=== PATIENT | male | born 1940 | race African-American/Black ===

== ENCOUNTER → 2016-08-10 | Outpatient (CLI) | payer MEDICARE | LOC: RAD 10:42 | PROVIDERS: ATTEND Internal Medicine | DX: N18.9 Chronic kidney disease, unspecified (principal) | CPT/HCPCS: 76770 ==

== ENCOUNTER → 2016-10-26 | Outpatient (CLI) | payer MEDICARE ==
--- NOTE | 2016-10-26 12:29 | RADIOLOGY REPORT (SQ) ---
EXAM DESCRIPTION: U/S RETROPERITON (RENAL/AORTA) COMPLETED DATE/TIME: 10/26/2016 10:57 am REASON FOR STUDY: CHRONIC KIDNEY DISEASE N18.3 CHRONIC KIDNEY DISEASE, STAGE 3 (MODERATE) COMPARISON: 08/10/2016 TECHNIQUE: Dynamic and static grayscale images acquired of the kidneys and bladder and recorded on P ACS. Additional selected color Doppler and spectral images recorded. LIMITATIONS: None. FINDINGS: RIGHT KIDNEY: 10 cm in length, with mild increased cortical echogenicity and cortical thin sukh, similar compared to 08/10/2016. No solid or suspicious masses. No hydronephrosis. No calcificat ions. LEFT KIDNEY: 9.7 cm in length, with mild increased cortical echogenicity and cortical thinning, josey lar compared to 08/10/2016. No solid or suspicious masses. No hydronephrosis. No calcifications. BLADDER: Decompressed, not well seen OTHER FINDINGS: No other significant finding. IMPRESSION: No hydronephrosis. Stable small kidneys with mild increased cortical echogenicity and cortical thinning. TECHNICAL DOCUMENTATION: JOB ID: [id number] [employer]- All Rights Reserved
== END ==
LOC: RAD 10:11
PROVIDERS: ATTEND Internal Medicine
DX: N18.3 Chronic kidney disease, stage 3 (moderate) (principal)
CPT/HCPCS: 76770

== ENCOUNTER 2018-09-17 18:09 | Emergency (ER) | payer MEDICARE ==
[2018-09-17] MEDS ORDERED: IBUPROFEN 800 MG TABLET PO ONE (18:27)
--- NOTE | 2018-09-17 19:20 | ER Document Report ---
ED Medical Screen (RME) - General Chief Complaint: Eye Problem Stated Complaint: RIGHT EYE PAIN Time Seen by Provider: 09/17/18 19:11 Primary Care Provider: AMBER MUSE MD [Primary Care Provider] - Follow up as needed Mode of Arrival: Ambulatory Information source: Patient Notes: 78-year-old male presents the ED for complaint of right eye pain swelling fever. He states he crashed blue into his eye about a week ago and it did not really feel bad felt like maybe sent was in his eye and he left it and that it is slowly become more swollen and painful. He states now it is draining a lot of green thick drainage it is swollen around the eye for the last couple days. He states now the vision is very blurry in the right eye. He came to the emergency room with a temperature of 102. Has a history of high blood pressure cholesterol and asthma. Patient states he has some pain in that eye but is not excruciating. I have greeted and performed a rapid initial assessment of this patient. A comprehensive ED assessment and evaluation of the patient, analysis of test results and completion of medical decision making process will be conducted by an additional ED providers. Dictation of this chart was performed using voice recognition software; therefore, there may be some unintended grammatical errors. TRAVEL OUTSIDE OF THE [place] IN LAST 30 DAYS: No - Related Data Allergies/Adverse Reactions: No Known Allergies Allergy (Verified 09/17/18 18:14) Past Medical History - Social History Chew tobacco use (# tins/day): No Frequency of alcohol use: None Drug Abuse: None - Past Medical History Cardiac Medical History: Reports: Hx Hypercholesterolemia, Hx Hypertension Renal/ Medical History: Denies: Hx Peritoneal Dialysis Psychiatric Medical History: Reports: Hx Schizophrenia Physical Exam - Vital signs Vitals: Temp Pulse Resp BP Pulse Ox 102.1 F H 86 18 164/71 H 96 09/17/18 18:25 09/17/18 18:25 09/17/18 18:25 09/17/18 18:25 09/17/18 18:25 Course - Vital Signs Vital signs: Temp Pulse Resp BP Pulse Ox 102.1 F H 86 18 164/71 H 96 09/17/18 18:25 09/17/18 18:25 09/17/18 18:25 09/17/18 18:25 09/17/18 18:25 Doctor's Discharge - Discharge Referrals: AMBER MUSE MD [Primary Care Provider] - Follow up as needed
[2018-09-17 20:04] LABS: ABSOLUTE BASOPHILS # (AUTO) 0.1 10^3/uL (0.0-0.2); ABSOLUTE EOSINOPHILS # (AUTO) 0.1 10^3/uL (0.0-0.6); ABSOLUTE LYMPHOCYTES (AUTO) 1.1 10^3/uL (0.5-4.7); ABSOLUTE MONOCYTES (AUTO) 1.1 10^3/uL (0.1-1.4); ABSOLUTE NEUT (AUTO) 8.2 10^3/uL (1.7-8.2); BASOPHILS % (AUTO) 0.6 % (0-2); EOSINOPHILS % (AUTO) 1.1 % (0-6); HEMATOCRIT 42.5 % (37.9-51.0); HEMOGLOBIN 14.1 g/dL (13.5-17.0); LYMPHOCYTES % (AUTO) 10.8 % (13-45); MEAN CORPUSCULAR HEMOGLOBIN 28.6 pg (27.0-33.4); MEAN CORPUSCULAR HGB CONC 33.2 g/dL (32.0-36.0); MEAN CORPUSCULAR VOLUME 86 fl (80-97); MONOCYTES % (AUTO) 10.4 % (3-13); PLATELET COUNT 222 10^3/uL (150-450); RED BLOOD COUNT 4.93 10^6/uL (4.35-5.55); RED CELL DISTRIBUTION WIDTH 14.4 % (11.5-14.0); SEGMENTED NEUTROPHILS % (AUTO) 77.1 % (42-78); TOTAL CELLS COUNTED % (AUTO) 100 %; WHITE BLOOD COUNT 10.6 10^3/uL (4.0-10.5)
[2018-09-17 20:10] LABS: APPEARANCE,URINE SLIGHTLY-CLOUDY; BILIRUBIN,URINE NEGATIVE (NEGATIVE); COLOR,URINE YELLOW; GLUCOSE, URINE NEGATIVE (NEGATIVE); KETONES,URINE NEGATIVE (NEGATIVE); LEUKOCYTE ESTERASE,URINE NEGATIVE (NEGATIVE); NITRITE,URINE NEGATIVE (NEGATIVE); PROTEIN,URINE 30 mg/dL (NEGATIVE); URINE SPECIFIC GRAVITY 1.014; UROBILINOGEN,URINE NEGATIVE mg/dL (<2.0)
[2018-09-17 20:20] LABS: ALANINE AMINOTRANSFERASE 25 U/L (21-72); ALBUMIN 4.3 g/dL (3.5-5.0); ALKALINE PHOSPHATASE 64 U/L (38-126); ANION GAP 13 (5-19); ASPARTATE AMINO TRANSFERASE 23 U/L (17-59); BILIRUBIN,DIRECT 0.2 mg/dL (0.0-0.4); BILIRUBIN,TOTAL 0.4 mg/dL (0.2-1.3); BLOOD UREA NITROGEN 19 mg/dL (7-20); C-REACTIVE PROTEIN 33.1 mg/L (<10.0); CALCIUM 9.7 mg/dL (8.4-10.2); CARBON DIOXIDE 27 mmol/L (22-30); CHLORIDE 98 mmol/L (98-107); GLUCOSE 219 mg/dL (75-110); POTASSIUM 4.3 mmol/L (3.6-5.0); SODIUM 137.6 mmol/L (137-145); TOTAL PROTEIN 8.1 g/dL (6.3-8.2)
[2018-09-17 20:42] LABS: ERYTHROCYTE SEDIMENTATION RATE 41 mm/hr (0-20)
[2018-09-17] MEDS ORDERED: VALACYCLOVIR HCL 500 MG TABLET PO ONE (21:29)
[2018-09-17 22:06] VITALS: BP 135/71
--- NOTE | 2018-09-17 22:31 | ER Document Report ---
ED Eye Complaint - General Chief Complaint: Eye Problem Stated Complaint: RIGHT EYE PAIN Time Seen by Provider: 09/17/18 19:11 Primary Care Provider: DYLON HORN MD [ACTIVE STAFF] - Follow up as needed Mode of Arrival: Ambulatory Information source: Patient Notes: Patient is a 78-year-old male who presents to the ER today for eye complaints, redness, drainage of yellow discharge from eye times approximately 1 week, also rash to the forehead that he noticed a few days ago as well. Patient is unsure if he got anything in the eye, denies any injury to the eye. He does not wear contacts but he does wear reading glasses. He states he has had a headache but denies any fever that he knows of. He denies any cough or cold symptoms. TRAVEL OUTSIDE OF THE [place] IN LAST 30 DAYS: No - Related Data Allergies/Adverse Reactions: No Known Allergies Allergy (Verified 09/17/18 18:14) Past Medical History - General Information source: Patient - Social History Smoking Status: Never Smoker Chew tobacco use (# tins/day): No Frequency of alcohol use: None Drug Abuse: None Family History: Reviewed & Not Pertinent Patient has suicidal ideation: No Patient has homicidal ideation: No - Past Medical History Cardiac Medical History: Reports: Hx Hypercholesterolemia, Hx Hypertension Renal/ Medical History: Denies: Hx Peritoneal Dialysis Psychiatric Medical History: Reports: Hx Schizophrenia Review of Systems - Review of Systems Constitutional: No symptoms reported EENT: See HPI Cardiovascular: No symptoms reported Respiratory: No symptoms reported Gastrointestinal: No symptoms reported Genitourinary: No symptoms reported Male Genitourinary: No symptoms reported Musculoskeletal: No symptoms reported Skin: See HPI Hematologic/Lymphatic: No symptoms reported Neurological/Psychological: No symptoms reported Physical Exam - Vital signs Vitals: Temp Pulse Resp BP Pulse Ox 102.1 F H 86 18 164/71 H 96 09/17/18 18:25 09/17/18 18:25 09/17/18 18:25 09/17/18 18:25 09/17/18 18:25 - Notes Notes: PHYSICAL EXAMINATION: GENERAL: Well-appearing and in no acute distress. HEAD: Atraumatic, normocephalic. EYES: Pupils equal round and reactive to light, extraocular movements intact, sclera anicteric, conjunctiva injected to the right eye only, erythema to the right upper eyelid and inferior orbital space, some clear fluid-filled blisters to area surrounding right eye and to right forehead and right scalp, not crossing the midline ENT: ear canals without erythema or foreign body, TMs pearly hair with good bony landmarks, nares patent, oropharynx clear without exudates. Moist mucous membranes. NECK: Normal range of motion, supple without lymphadenopathy LUNGS: CTAB and equal. No wheezes rales or rhonchi. HEART: Regular rate and rhythm without murmurs EXTREMITIES: Normal range of motion, no pitting edema. No cyanosis. NEUROLOGICAL: Cranial nerves grossly intact. Normal sensory/motor exams. PSYCH: Normal mood, normal affect. SKIN: Warm, Dry, normal turgor, see eyes above - HEENT Visual acuity- Right eye: 20/50 Visual acuity- Left eye: 20/40 Visual acuity- Both eyes: 20/30 Corrective lenses worn: - Reading glasses Course - Re-evaluation Re-evalutation: 09/17/18 23:14 Patient is actually very well-appearing, happy, talkative and even laughing during history and physical exam, he does appear clinically to have shingles with ocular involvement. Patient's visual acuity however was not bad, he denies any actual pain to the eyeball or photosensitivity, had normal extraocular movements without pain, Dr. Horn, fruit receiver on-call was consulted and wants me to start him on erythromycin ointment and Valtrex, he will see him in the morning in the office. - Vital Signs Vital signs: Temp Pulse Resp BP Pulse Ox 98.6 F 64 20 135/71 H 97 09/17/18 22:04 09/17/18 22:04 09/17/18 22:04 09/17/18 22:04 09/17/18 22:04 - Laboratory Result Diagrams: 09/17/18 19:40 09/17/18 19:40 Laboratory results interpreted by me: 09/17/18 09/17/18 09/17/18 19:40 19:40 19:40 WBC 10.6 H RDW 14.4 H Lymphocytes % 10.8 L ESR 41 H Creatinine 1.81 H Est GFR ( Amer) 44 L Est GFR (Non-Af Amer) 37 L Glucose 219 H C-Reactive Protein 33.1 H Urine Protein 30 H Urine Blood MODERATE H Discharge - Discharge Clinical Impression: Shingles outbreak Qualifiers: Herpes zoster complications: with ocular involvement Herpes zoster ocular complication detail: conjunctivitis Qualified Code(s): B02.31 - Zoster conjunctivitis Condition: Stable Disposition: HOME, SELF-CARE Additional Instructions: Return immediately for any new or worsening symptoms. Follow up with ophthalmology, call tomorrow to make followup appointment. Prescriptions: Erythromycin Base [Erythromycin Oph 1 gm Oint Ud] 1 applic OD BID #1 tube Valacyclovir HCl [Valtrex] 1,000 mg PO TID #21 tablet Referrals: DYLON HORN MD [ACTIVE STAFF] - Follow up as needed
[2018-09-17] MEDS ORDERED: ERYTHROMYCIN 0.5% OPH OINT 1 GM UNIT DOSE OD ONE (22:37)
== END 2018-09-17 22:55 | disposition home or self-care (01) ==
LOC: ER 18:09
DX: B02.31 Zoster conjunctivitis (principal); R51 Headache; I10 Essential (primary) hypertension
CPT/HCPCS: 99283; 36415; 85025; 85652; 86140; 80053; 81001; 76770; A9270 ×2

== ENCOUNTER → 2018-09-17 | Outpatient (CLI) | payer MEDICARE ==
--- NOTE | 2018-09-17 13:07 | RADIOLOGY REPORT (SQ) ---
EXAM DESCRIPTION: U/S RETROPERITON (RENAL/AORTA) COMPLETED DATE/TIME: 09/17/2018 12:07 pm REASON FOR STUDY: CKD III (N18.3) N18.3 CHRONIC KIDNEY DISEASE, STAGE 3 (MODERATE) COMPARISON: 10/26/2016. TECHNIQUE: Dynamic and static grayscale images acquired of the kidneys and bladder and recorded on P ACS. Additional selected color Doppler and spectral images recorded. LIMITATIONS: None. FINDINGS: RIGHT KIDNEY: Normal size. Normal echogenicity. No solid or suspicious masses. No hydronep hrosis. No calcifications. LEFT KIDNEY: Normal size. Normal echogenicity. No solid or suspicious masses. No hydronephrosis. No calcifications. BLADDER: No masses. OTHER FINDINGS: No other significant finding. IMPRESSION: NORMAL RENAL AND BLADDER ULTRASOUND. TECHNICAL DOCUMENTATION: JOB ID: [id number] [employer]- All Rights Reserved Reading location - IP/workstation name: [email or web address]
== END ==
LOC: RAD 10:43
PROVIDERS: ATTEND Internal Medicine
DX: N18.3 Chronic kidney disease, stage 3 (moderate) (principal)
CPT/HCPCS: 76770

== ENCOUNTER 2020-01-23 02:27 | Emergency (ER) | payer OTHER, MEDICARE ==
--- NOTE | 2020-01-23 03:01 | ER Document Report ---
ED Psych Disorder / Suicide - General Chief Complaint: Psych Problem Stated Complaint: PSYCH ISSUES Time Seen by Provider: 01/23/20 02:53 Primary Care Provider: AMBER MUSE MD [Primary Care Provider] - Follow up as needed Notes: Patient is a 79-year-old male with a history of schizoaffective disorder who presents the emergency department with a chief complaint of not sleeping and not acting his normal self. Patient was seen here in the emergency department last week and was evaluated by mental health. According to the , the patient is taking his medications, but he is still not acting his normal self. states that he has been acting his normal self for the past 2 days. Patient has had an old diaper and he has been wrapping around his left wrist and hand. Patient denies any suicidal or homicidal ideation. TRAVEL OUTSIDE OF THE [place] IN LAST 30 DAYS: No - Related Data Allergies/Adverse Reactions: No Known Allergies Allergy (Verified 01/23/20 02:45) Past Medical History - General Information source: Relative - Social History Smoking Status: Never Smoker Frequency of alcohol use: None Drug Abuse: None Family History: Reviewed & Not Pertinent Patient has homicidal ideation: No - Past Medical History Cardiac Medical History: Reports: Hx Hypercholesterolemia, Hx Hypertension Renal/ Medical History: Denies: Hx Peritoneal Dialysis Psychiatric Medical History: Reports: Hx Schizophrenia Review of Systems - Review of Systems -: Yes ROS unobtainable due to patient's medical condition Physical Exam - Vital signs Vitals: Pulse Resp BP Pulse Ox 101 H 18 175/98 H 97 01/23/20 02:35 01/23/20 02:35 01/23/20 02:35 01/23/20 02:35 - Notes Notes: PHYSICAL EXAMINATION: GENERAL: Appears disheveled, no acute distress. HEAD: Normocephalic, atraumatic. EYES: PERRL, conjunctiva normal, all extraocular movements intact, sclera nonicteric ENT: Moist mucous membranes. NECK: Supple, no noticeable swelling, redness, rash. Normal range of motion. LUNGS: Equal breath sounds bilaterally and clear to auscultation. No wheezes rales or rhonchi. CARDIOVASCULAR: S1-S2, regular rate, regular rhythm. Radial pulses 2+, normal. ABDOMEN: Normoactive bowel sounds. Soft, nontender, no guarding, no rebound tenderness, and no masses palpated. EXTREMITIES: Normal strength and range of motion, no pitting or edema. No cyanosis. NEUROLOGICAL: Moves all extremities upon command. Strength 5/5 in all extremities. PSYCH: Normal mood, normal affect. SKIN: Warm, dry. No rash, lesions, ulcerations noted. Normal skin turgor. Course - Re-evaluation Re-evalutation: 01/23/20 06:50 Hematology shows a slight leukocytosis of 10,900 with a left shift. Chemistries show a creatinine of 1.43, which is the patient's baseline. Urinalysis shows moderate amount of blood, which patient had a moderate amount of blood in his urine from his previous visit. His urine was sent for culture at that time. Nothing grew back anything. Valproic acid level is therapeutic. Salicylates, acetaminophen, and serum alcohol are negative. Urine drug screen is also negative. Chest x-ray is unremarkable. CT of the head does not show any intra- medial findings. Patient is medically clear for mental health evaluation by Dr. Pepe and staff. - Vital Signs Vital signs: Temp Pulse Resp BP Pulse Ox 101 H 18 175/98 H 97 01/23/20 02:35 01/23/20 02:35 01/23/20 02:35 01/23/20 02:35 - Laboratory Result Diagrams: 01/23/20 04:02 01/23/20 04:02 Laboratory results interpreted by me: 01/23/20 01/23/20 01/23/20 02:53 04:02 04:02 WBC 10.8 H Hgb 13.2 L RDW 14.1 H Lymph % (Auto) 10.2 L Absolute Neuts (auto) 8.7 H Seg Neutrophils % 80.4 H Creatinine 1.43 H Est GFR ( Amer) 58 L Est GFR (MDRD) Non-Af 48 L Glucose 118 H AST 94 H ALT 55 H Urine Protein 100 H Urine Ketones TRACE H Urine Blood MODERATE H Salicylates < 1.0 L Acetaminophen < 10 L Discharge - Discharge Clinical Impression: Behavior disturbance Condition: Stable Disposition: PSYCH HOSP/UNIT Referrals: AMBER MUSE MD [Primary Care Provider] - Follow up as needed
[2020-01-23 03:35] LABS: APPEARANCE,URINE CLEAR; BILIRUBIN,URINE NEGATIVE (NEGATIVE); COLOR,URINE STRAW; GLUCOSE, URINE NEGATIVE (NEGATIVE); KETONES,URINE TRACE mg/dL (NEGATIVE); LEUKOCYTE ESTERASE,URINE NEGATIVE (NEGATIVE); NITRITE,URINE NEGATIVE (NEGATIVE); PROTEIN,URINE 100 mg/dL (NEGATIVE); URINE SPECIFIC GRAVITY 1.008; UROBILINOGEN,URINE NEGATIVE mg/dL (<2.0)
[2020-01-23 03:44] LABS: URINE AMPHETAMINES SCREEN NEGATIVE; URINE BARBITURATES SCREEN NEGATIVE; URINE BENZODIAZEPINES SCREEN NEGATIVE; URINE COCAINE SCREEN NEGATIVE; URINE MARIJUANA (THC) SCREEN NEGATIVE; URINE METHADONE SCREEN NEGATIVE; URINE PHENCYCLIDINE SCREEN NEGATIVE
[2020-01-23 04:29] LABS: ABSOLUTE BASOPHILS # (AUTO) 0.1 10^3/uL (0.0-0.2); ABSOLUTE EOSINOPHILS # (AUTO) 0.1 10^3/uL (0.0-0.6); ABSOLUTE LYMPHOCYTES (AUTO) 1.1 10^3/uL (0.5-4.7); ABSOLUTE MONOCYTES (AUTO) 0.8 10^3/uL (0.1-1.4); ABSOLUTE NEUT (AUTO) 8.7 10^3/uL (1.7-8.2); BASOPHILS % (AUTO) 0.8 % (0-2); EOSINOPHILS % (AUTO) 0.9 % (0-6); HEMATOCRIT 39.2 % (37.9-51.0); HEMOGLOBIN 13.2 g/dL (13.5-17.0); LYMPHOCYTES % (AUTO) 10.2 % (13-45); MEAN CORPUSCULAR HEMOGLOBIN 29.2 pg (27.0-33.4); MEAN CORPUSCULAR HGB CONC 33.7 g/dL (32.0-36.0); MEAN CORPUSCULAR VOLUME 87 fl (80-97); MONOCYTES % (AUTO) 7.7 % (3-13); PLATELET COUNT 180 10^3/uL (150-450); RED BLOOD COUNT 4.51 10^6/uL (4.35-5.55); RED CELL DISTRIBUTION WIDTH 14.1 % (11.5-14.0); SEGMENTED NEUTROPHILS % (AUTO) 80.4 % (42-78); TOTAL CELLS COUNTED % (AUTO) 100 %; WHITE BLOOD COUNT 10.8 10^3/uL (4.0-10.5)
[2020-01-23 04:46] LABS: ALBUMIN 4.7 g/dL (3.5-5.0); ALKALINE PHOSPHATASE 61 U/L (38-126); ANION GAP 12 (5-19); ASPARTATE AMINO TRANSFERASE 94 U/L (17-59); BILIRUBIN,DIRECT 0.4 mg/dL (0.0-0.4); BILIRUBIN,TOTAL 0.9 mg/dL (0.2-1.3); BLOOD UREA NITROGEN 20 mg/dL (7-20); CALCIUM 9.5 mg/dL (8.4-10.2); CARBON DIOXIDE 24 mmol/L (22-30); CHLORIDE 105 mmol/L (98-107); GLUCOSE 118 mg/dL (75-110); POTASSIUM 3.6 mmol/L (3.6-5.0); TOTAL PROTEIN 8.2 g/dL (6.3-8.2)
[2020-01-23 04:47] LABS: ACETAMINOPHEN < 10 ug/mL (10-30); ALCOHOL < 10 mg/dL (NONE DETECTED); SALICYLATE < 1.0 mg/dL (2.0-20.0)
--- NOTE | 2020-01-23 05:30 | RADIOLOGY REPORT (SQ) ---
EXAM DESCRIPTION: CT HEAD WITHOUT IV CONTRAST COMPLETED DATE/TME: 01/23/2020 03:01 CLINICAL HISTORY: AMS COMPARISON: 01/15/2020 TECHNIQUE: Axial CT of the head obtained from the skull apex to the skull base without contrast. FINDINGS: No acute intracranial hemorrhage identified. No mass, mass effect, shift of the midline, abnormal extra-axial fluid collection or CT evidence of acute ischemic change identified. The ventricular system and sulcal spaces are age appropriate. Scattered areas of hypodensity throughout the supratentorial white matter are nonspecific and may be related to chronic small vessel ischemic change. The visualized paranasal sinuses and the mastoids are clear. No skull fracture identified. Visualized orbits and globes are unremarkable. Atherosclerotic calcification of the intracranial internal carotid arteries. IMPRESSION: 1. No acute intracranial abnormality by CT criteria. This exam was performed according to our departmental dose-optimization program, which includes automated exposure control, adjustment of the mA and/or kV according to patient size and/or use of iterative reconstruction technique.
--- NOTE | 2020-01-23 05:36 | RADIOLOGY REPORT (SQ) ---
CLINICAL HISTORY: AMS COMPARISON: 01/15/2020. TECHNIQUE: XR CHEST 1 VIEW 01/23/2020 3:04 AM CDT FINDINGS: Cardiac silhouette is normal in size. Lungs are clear without consolidation, atelectasis, mass or edema. There is no pleural effusion. There is no pneumothorax. There are no acute osseous findings. IMPRESSION: Clear lungs.
--- NOTE | 2020-01-23 09:17 | EKG REPORT ---
SEVERITY:- ABNORMAL ECG - SINUS RHYTHM PROBABLE LEFT ATRIAL ABNORMALITY LEFT ANTERIOR FASCICULAR BLOCK LEFT VENTRICULAR HYPERTROPHY CONSIDER ANTERIOR INFARCT BORDERLINE T ABNORMALITIES, INFERIOR LEADS BORDERLINE PROLONGED QT INTERVAL : Confirmed by: Neli Briscoe 23-Jan-2020 09:16:38
[2020-01-23] MEDS ORDERED: RISPERIDONE 0.25 MG TABLET PO ONE (11:03)
--- NOTE | 2020-01-23 13:08 | ER Document Report ---
Doctor's Note Notes: 01/23/20 13:07 Patient is walking in his room, does not appear to be in any distress. Awaiting psychiatric evaluation for recommendations. Patient was recently here for similar issues. History of elevated cholesterol, hypertension, dementia, gout, chronic kidney disease
[2020-01-23] MEDS ORDERED: CLONIDINE 0.1 MG/24 HR PATCH.TDWK TD ONE (14:35)
[2020-01-23] MEDS ORDERED: LORAZEPAM INJ 2 MG/1 ML VIAL IM ONE (14:42)
[2020-01-23] MEDS ORDERED: HALOPERIDOL LACTATE INJ 5 MG/1 ML VIAL IM ONE (14:43)
[2020-01-23] MEDS: BUSPIRONE HCL 10 MG TABLET PO SCH (18:45)
[2020-01-23] MEDS: DIVALPROEX SODIUM 250 MG TAB.SR.24H PO SCH (18:46)
[2020-01-23] MEDS: RISPERIDONE 0.25 MG TABLET PO SCH (18:46)
[2020-01-24] MEDS ORDERED: LORAZEPAM INJ 2 MG/1 ML VIAL IM ONE (00:50)
[2020-01-24] MEDS: RISPERIDONE 0.25 MG TABLET PO SCH ×2 (10:27→19:39)
[2020-01-24] MEDS: DIVALPROEX SODIUM 250 MG TAB.SR.24H PO SCH ×2 (10:27→19:38)
[2020-01-24] MEDS: BUSPIRONE HCL 10 MG TABLET PO SCH ×2 (10:27→19:38)
--- NOTE | 2020-01-24 10:31 | ER Document Report ---
Doctor's Note Notes: 01/24/20 15:28 Patient sitting up in the chair eating a snack. He is alert, interactive. He denies any needs. He is pending placement at this time.
--- NOTE | 2020-01-24 12:27 | PSYCHOLOGICAL NOTE ---
Psych Note - Psych Note Date seen by psych provider: 01/24/20 Time seen by psych provider: 11:00 Psych Note: Reason for Consult: Psychosis Patient presented to [facility] ED after an increase in mental health symptoms. Patient has been demonstrating behaviors of responding to internal stimuli (ie both auditory and visual hallucinations). Patient saw a purple posted note on the floor and became inconsolable. He thought the posted note was his purple heart that was damaged. Patient reports feeling and seeing bugs crawl on him. Patient's reports she is unable to care for the patient anymore and [facility]. Clinician explained patient is in need of stabilization first prior to any watermelon harvesting supervisor placement. Patient's states she understands. Clinician explained the behavioral health team is unable to make watermelon harvesting supervisor placements, as we focus on acute psychiatric treatment; however, currently treatment needs to focus on stabilization. Patient's confirms she understands. Impression/Plan: Patient is recommended for IVC; paperwork is signed, faxed to carburetor mechanic and placed in patient's chart. He is unable to engage appropriately in conversation; he has disorganized thought processes. He continues to demonstrate labile mood vacillating from irritable to depressed to euthymic. Patient has a documented history of schizoaffective disorder. He was treated at [facility] ED from 01/14/2020 until 01/17/2020 for symptom break out and received medication adjustments. He is currently therapeutic on Depakote. He is unable is differentiate between reality and his hallucinations. Dr. Pepe was consulted on the care and management of this patient; attending physician is in agreement with recommendations and disposition.
--- NOTE | 2020-01-24 13:16 | PSYCHOLOGICAL NOTE ---
Psych Note - Psych Note Date seen by psych provider: 01/23/20 Time seen by psych provider: 12:00 - Observation of patient throughout the day. Evaluation with patient from [id number]. 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 Similar etiology to 01/13/2020 visit. At 1102 Attending ED Nurse noted patient was triggered several minutes prior due to thinking he saw his Purple Heart destroyed on the floor in his emergency department room. Patient was sitting in a chair almost under the TV in his room. He stated "I am better" when asked how he was feeling. he reported "I'm scrubbing the floor" which he was doing with his socks and there was wetness. When asked if he has felt like himself he commented "not exactly, it's my whole system, it's like off, I feel hazy and fuzzy." Observed patient a couple hours later if even with bed sheet wrapped around arms, marching, and singing Zextit song. Shortly after Attending ED Physician informed this clinician patient had wrapped the bed sheet around his neck and it required multiple staff to get it off as he became combative so PRN medication going to be administered. He displayed psychomotor agitation. Head CT dated today has neurodegenerative process language. Attending Nurse noted called saying patient's brothers were coming to town from [place] Monday and they plan on taking patient back to [place] with them. Clinical Presentation: Psychosis Concerns for Neurodegenerative processes Concerns for Kidney Functioning- important due to many medications metabolizing via kidneys Medication recommendations made by the psychiatric medication provider Dr. Gissell GROVER., includes: Add Depakote Dr 500MG twice a day for mood stabilization Add Buspar 5MG twice a day for anxiety/calming effect/depression/sleep Add Clonidine 0.1MG patch weekly for calming effect Add Risperdal 0.25MG twice a day for psychosis/agitation Add Ativan 0.5MG every 6 hours as needed for psychosis/agitation (wanted to use Haldol 2.5MG as needed but QT= 452 and QTc = 488) Impression/Plan: Recommendation for 24 Hour Petition for Evaluation. Patient identified his system has felt off and he feels hazy/fuzzy. He displayed psychomotor agitation via constantly moving about room, standing in doorway, and marching. He tied bed sheet around neck and it took several medical staff to remove it since he became combative. He has a history of Schizophrenia and Dementia. He was seen 01/13/2020 for similar etiology and brought him back in for feeling bugs crawling on him, auditory hallucinations, disorganized thoughts and mood lability. The same medications were started from previous visit in addition to two others to address psychosis while being mindful of neurodegenerative process language on Head CT dated today. Consulted with Dr. Pepe regarding the management and care of patient. ED Physician in agreement with recommendations.
--- NOTE | 2020-01-24 19:44 | ER Document Report ---
Doctor's Note Notes: 01/24/20 19:43 Patient reevaluated at this time. Nursing staff was concerned that patient may be having an acute mental status change and she was also concerned he might have drooping to the left side of his face. Patient is alert, calm, cooperative, answering questions appropriately. He has no focal neurological deficits noted. He is sitting in the room eating applesauce without difficulty.
[2020-01-24] MEDS: LORAZEPAM INJ 2 MG/1 ML VIAL IM PRN (19:48)
[2020-01-25] MEDS: LORAZEPAM INJ 2 MG/1 ML VIAL IM PRN (08:08)
[2020-01-25] MEDS: BUSPIRONE HCL 10 MG TABLET PO SCH ×2 (10:43→18:48)
[2020-01-25] MEDS: DIVALPROEX SODIUM 250 MG TAB.SR.24H PO SCH ×2 (10:44→18:48)
[2020-01-25] MEDS: RISPERIDONE 0.25 MG TABLET PO SCH ×2 (10:48→18:48)
--- NOTE | 2020-01-25 16:18 | PSYCHOLOGICAL NOTE ---
Psych Note - Psych Note Date seen by psych provider: 01/25/20 Time seen by psych provider: 12:00 Psych Note: Reason for Consult: Psychosis Patient presented to [facility] ED after an increase in mental health symptoms. Patient has been demonstrating behaviors of responding to internal stimuli (ie both auditory and visual hallucinations). Patient saw a purple posted note on the floor and became inconsolable. He thought the posted note was his purple heart that was damaged. Patient reports feeling and seeing bugs crawl on him. Check in conducted with patient: patient continues to have difficulties and has require a lap belt to maintain safety. Patient refuses to keep clothes on or a blanket to cover him. Medication recommendations made by the psychiatric medication provider Dr. Gissell GROVER., includes: Depakote Dr 500MG twice a day for mood stabilization Buspar 5MG twice a day for anxiety/calming effect/depression/sleep Clonidine 0.1MG patch weekly for calming effect Risperdal 0.25MG twice a day for psychosis/agitation Ativan 0.5MG every 6 hours as needed for psychosis/agitation (wanted to use Haldol 2.5MG as needed but QT= 452 and QTc = 488) Impression/Plan: Patient is recommended for continued IVC. He is unable to engage appropriately in conversation; he has disorganized thought processes. He continues to demonstrate labile mood vacillating from irritable to depressed to euthymic. Patient has a documented history of schizoaffective disorder. He was treated at [facility] ED from 01/14/2020 until 01/17/2020 for symptom break out and received medication adjustments. He is currently therapeutic on Depakote. He is unable is differentiate between reality and his hallucinations. Dr. Pepe was consulted on the care and management of this patient; attending physician is in agreement with recommendations and disposition. placement efforts: [facility]- have beds; refaxed [facility]- have beds available for placement tomorrow; faxed- after review of paperwork patient is denied due to [facility] [place]- no beds [place]- no beds [place]- will not be able to look at patient until COVID test comes back [facility] unit closed for renovations- hope to reopen next month
[2020-01-26] MEDS: BUSPIRONE HCL 10 MG TABLET PO SCH ×2 (10:41→18:53)
[2020-01-26] MEDS: DIVALPROEX SODIUM 250 MG TAB.SR.24H PO SCH ×2 (10:42→18:53)
[2020-01-26] MEDS: RISPERIDONE 0.25 MG TABLET PO SCH ×2 (10:42→18:53)
--- NOTE | 2020-01-26 20:00 | ER Document Report ---
Doctor's Note Notes: 01/26/20 16:00 Patient has been resting in his room without any complaints today. The nursing staff he states he has been having appropriate p.o. intake. We are still pending placement to a psychiatric facility. The patient denies any needs today.
[2020-01-27] MEDS: LORAZEPAM INJ 2 MG/1 ML VIAL IM PRN (04:30)
[2020-01-27] MEDS: DIVALPROEX SODIUM 250 MG TAB.SR.24H PO SCH ×2 (09:45→17:38)
[2020-01-27] MEDS: BUSPIRONE HCL 10 MG TABLET PO SCH ×2 (09:45→17:39)
[2020-01-27] MEDS: RISPERIDONE 0.25 MG TABLET PO SCH ×2 (09:45→17:38)
--- NOTE | 2020-01-27 14:42 | ER Document Report ---
Doctor's Note Notes: 01/27/20 14:41 Patient has been ambulatory in the [facility]. Patient has no visible distress at this time. Awaiting psychiatric reevaluation today.
[2020-01-28] MEDS: BUSPIRONE HCL 10 MG TABLET PO SCH ×2 (10:37→18:45)
--- NOTE | 2020-01-28 10:37 | ER Document Report ---
Doctor's Note Notes: 01/28/20 10:37 Patient in no distress. Family member the room talking with the patient. Awaiting psychiatric reevaluation for management plan
[2020-01-28] MEDS: DIVALPROEX SODIUM 250 MG TAB.SR.24H PO SCH ×2 (10:38→18:44)
[2020-01-28] MEDS: RISPERIDONE 0.25 MG TABLET PO SCH ×2 (10:38→18:45)
[2020-01-28 19:57] VITALS: BP 149/59
--- NOTE | 2020-01-30 18:06 | PSYCHOLOGICAL NOTE ---
Psych Note - Psych Note Date seen by psych provider: 01/27/20 Time seen by psych provider: 13:18 - Evaluation with patient from [id number]. Psych Note: Patient is a 79 year old male in the Emergency Department since 01/23/2020, on FULL IVC since 01/24/2020, for psychosis/ disorganized thoughts/labile mood/history of Schizophrenia (likely Schizoaffective) and concerns for neurodegenerative processes though not diagnosed yet/seen for similar etiology 01/13/2020. Patient stated "fairly well" when asked how he was doing. He inquired if this clinician was a social insurance specialist because "I am a and need to coordinate with them." He stated "I feel put back together, I feel a lot better." He stated "not as much" when asked about seeing or hearing things that seem off/not right. Chart review revealed the as needed Ativan was utilized today. Though he is improved want to continue seeing at least this level of improvement given seen 01/13/2020 for similar etiology but ended up back 01/23/2020 for same symptoms, as well as make referral to [facility] for continued care needs. Clinical Presentation: Psychosis History of Schizophrenia (likely Schizoaffective) Concerns for Neurodegenerative processes Impression/Plan: Recommendation to maintain IVC. Patient has shown improvement but want to ensure it maintains or gets better. Patient seen 01/13/2020 for similar etiology and then came back 01/23/2020 for the same symptoms. Also had not been able to make referral to [facility] for inpatient hospitalization and continued stabilization. Made this referral this evening. Consulted with Dr. Pepe regarding the management and care of patient. ED Physician in agreement with recommendations.
--- NOTE | 2020-01-30 18:24 | PSYCHOLOGICAL NOTE ---
Psych Note - Psych Note Date seen by psych provider: 01/28/20 Time seen by psych provider: 10:48 - Collateral /discussion with patient brother from [id number]. Evaluation with patient from [id number]. Plan of care discussion with from [id number]. Psych Note: Patient is a 79 year old male who has been in the Emergency Department since 01/23/2020 under IVC for or psychosis/ disorganized thoughts/labile mood/history of Schizophrenia (likely Schizoaffective) and concerns for neurodegenerative processes though not diagnosed yet. By 1446 spoke to [facility] who denied patient for inpatient hospitalization due to not their level of care (likely related to neurde generative processes which are medical in nature) so unable to obtain continued [facility] support/treatment via acute hospitalization. Patient reported "I am doing a lot better, I know who I am and where I am." He commented "sometimes I feel outside pressure which makes me get to the point I was at, I wish I knew how to keep it from happening." He mentioned he had a nice meal for lunch. He mentioned his bother had been present visiting today (was truth). Patient was alert and oriented to self, person, place, time and situation. Mood was euthymic with congruent affect. He denied current suicidal and homicidal ideation. Patient did not appear to be responding to internal stimuli as evidenced by fair eye contact, answering questions appropriately when addressed and engaging in dialogue conversation. Thought processes were more linear and organized. Conversational speech was within normal limits for rate, tone and prosody. Intellectual abilities are estimated to be average. Insight, judgment and impulse control were fair as evidenced by improved mental status and recognition that outside pressure seems to be a trigger and wanting to have more control over it. Brother came by to discuss [employer] living at a place in [place]. he was made aware that right now the goal was for symptom management/stabilization so that maybe he could be managed at home or be able to go to [employer] living facility. He noted the plan was for patient to go back to [place] with him his previous ED visit and he and have not discussed that this time but it could be an option. Spoke to regarding discharge plan and she provided transportation home. She was made aware of a fourth medication being added to his medication regimen since the previous ED visit. Clinical Presentation: Psychosis History of Schizophrenia (likely Schizoaffective) Concerns for Neurodegenerative processes Impression/Plan: Patient is cleared from acute psychiatric services. Recommendation to RESCIND FULL IVC. The past two days patient has been improved in terms of mood lability (consistently euthymic with congruent affect), psychosis (not hallucinating or responding to internal stimuli since having more appropriate interactions), disorganized thoughts (recognized outside pressure seems to be a trigger and wanting more control over it), and [facility] [place] denied inpatient hospitalization which would have been additional treatment/support. At this point patient is felt to be baseline and can continue with outpatient services to manage symptoms. Recommendation for [facility] follow up for mental health, primary care follow up, and neurology follow up. Additional medication added from previous ED visit to help with symptom management. Both mobile crisis numbers included with discharge paperwork. included in plan of care and provided transportation. Patient and have family support via patient's brothers visiting from [place] with options of them taking him back there or one already looking into/considering the need for snf living placement. Consulted with Dr. Pepe regarding the management and care of patient. ED Physician in agreement with recommendation. Note previous ED visit 01/13/2020 ED Discharge Planning/SW had been involved and spoke with patient's .
== END 2020-01-28 19:59 | disposition home or self-care (01) ==
LOC: ER 02:27
DX: F29 Unspecified psychosis not due to a substance or known physiological condition (principal); F25.9 Schizoaffective disorder, unspecified; F91.9 Conduct disorder, unspecified; E78.00 Pure hypercholesterolemia, unspecified; I10 Essential (primary) hypertension; Z03.818 Encounter for observation for suspected exposure to other biological agents ruled out
CPT/HCPCS: 93005; 99285; 96372; 36415; 80307 ×4; 85025; 87635; 80053; 81001; 80164; 71045; 70450; 93010; J3490 ×13; J2060 ×4; C9803